=== PATIENT | male | born 1985 | race Caucasian/White ===

== ENCOUNTER 2019-11-17 08:40 | Emergency (ER) | payer SELFPAY ==
[2019-11-17] MEDS ORDERED: predniSONE 10 MG Tab ONE (09:00)
[2019-11-17] MEDS ORDERED: Albuterol 8 GM Inhaler INH ONE (09:00)
--- NOTE | 2019-11-17 12:38 | EDM.PDOC ---
ED HPI GENERAL MEDICAL PROBLEM - General Stated Complaint: SOB, COUGH Time Seen by Provider: 11/17/19 08:50 Source of Information: Reports: Patient History Limitations: Reports: No Limitations - History of Present Illness INITIAL COMMENTS - FREE TEXT/NARRATIVE: This patient presents for evaluation of a cough. He states he had a cough that was coarse in September along with some sinus congestion but was not seen by his PCP. He states the cough and chest congestion went away completely but the "sinus stuff" did not. He developed a cough again this week. He states it is dry and mostly non-productive. He has not had a fever, denies runny nose. Appetite is good and he denies vomiting or diarrhea. He states he has been told that he has "asthma and COPD" in the past and has used an albuterol MDI in the past but is not on any medications at this time. He denies any history of smoking, other concerns or complaints. He works at a local [employer]. Onset: Gradual Onset Date: 11/11/19 Duration: Getting Worse Location: Reports: Chest Improves with: Reports: None Associated Symptoms: Reports: Cough ED ROS GENERAL - Review of Systems Review Of Systems: See Below Constitutional: Denies: Fever, Decreased Appetite HEENT: Reports: Throat Pain. Denies: Ear Discharge, Ear Pain, Eye Discharge, Eye Pain, Rhinitis Respiratory: Reports: Cough. Denies: Shortness of Breath, Wheezing Cardiovascular: Denies: Chest Pain GI/Abdominal: Reports: No Symptoms Musculoskeletal: Reports: No Symptoms Skin: Reports: No Symptoms Neurological: Reports: No Symptoms ED EXAM, GENERAL - Physical Exam Exam: See Below Exam Limited By: No Limitations General Appearance: Alert, WD/WN, No Apparent Distress Eye Exam: Bilateral Eye: Normal Inspection, PERRL Ears: Normal External Exam, Normal Canal, Normal TMs Nose: Normal Inspection, Normal Mucosa, Clear Rhinorrhea Throat/Mouth: Normal Inspection, Normal Lips, Normal Teeth, Normal Oropharynx Head: Atraumatic, Normocephalic Neck: Normal Inspection, Supple, Non-Tender, Full Range of Motion Respiratory/Chest: No Respiratory Distress, Lungs Clear, Normal Breath Sounds, No Accessory Muscle Use, Chest Non-Tender, Other (occasional dry, non- productive cough) Extremities: Normal Inspection, Normal Range of Motion Skin Exam: Warm, Dry, Intact, Normal Color Course - Vital Signs Last Recorded V/S: Last Vital Signs Temp 37.2 C 11/17/19 08:55 Pulse 100 11/17/19 08:55 Resp 16 11/17/19 08:55 BP 133/94 H 11/17/19 08:55 Pulse Ox 97 11/17/19 08:55 - Re-Assessments/Exams Free Text/Narrative Re-Assessment/Exam: 11/17/19 13:05 This patient presents for evaluation of cough. This is consistent with an upper respiratory tract infection. There are no signs at this point of other serious bacterial infection such as OM, RPA, epiglottitis, DITCH RIDER, strep pharyngitis, pneumonia, sinusitis, meningitis, bacteremia. Given clear lungs, fever curve, no hypoxia and no respiratory distress I do not feel patient needs a CXR at this point as the probability of bacterial pneumonia is very unlikely. There are no concerning gastrointestinal symptoms at this point and no signs of dehydration. He was given an albuteral mdi to use every 4-6 hours as needed for cough as well as a prescription for prednisone to use for the next 4 days. Close followup with primary care physician is indicated. Return to ED for fever > 103, protracted vomiting, confusion. Departure - Departure Time of Disposition: 09:15 Disposition: Refer to Observation Condition: Good Clinical Impression: URI, acute - Discharge Information *PRESCRIPTION DRUG MONITORING PROGRAM REVIEWED*: Not Applicable Instructions: Asthma, Adult, [id number] Referrals: PCP,None [Primary Care Provider] - Care Plan Goals: Avoid exposures to smoke, ect any triggers that make symptoms worse. Take medication as prescribed. Call or return with any questions or concerns. Sepsis Event Note - Evaluation Sepsis Screening Result: No Definite Risk - Focused Exam Vital Signs: Vital Signs Temp Pulse Resp BP Pulse Ox 11/17/19 08:55 37.2 C 100 16 133/94 H 97 Date Exam was Performed: 11/17/19 Time Exam was Performed: 12:23
== END 2019-11-17 09:13 ==
LOC: LB.ED 08:40
DX: J06.9 Acute upper respiratory infection, unspecified (principal)
CPT/HCPCS: 99283; A9270

== ENCOUNTER 2020-11-11 12:19 | Emergency (ER) | payer SELFPAY ==
[2020-11-11] MEDS ORDERED: Lidocaine 1% with EPINEPHrine 1:100,000 20 ML MDV INJECT ONE (12:58)
[2020-11-11] MEDS ORDERED: Diphtheria,Pertussis(Acell),Tetanus Vaccine 0.5 ML SDV IM ONE (13:10)
--- NOTE | 2020-11-11 13:16 | EDM.PDOC ---
ED HPI GENERAL MEDICAL PROBLEM - General Chief Complaint: General Stated Complaint: LACERATION ON LEFT HAND Time Seen by Provider: 11/11/20 12:30 Source of Information: Reports: Patient History Limitations: Reports: No Limitations - History of Present Illness INITIAL COMMENTS - FREE TEXT/NARRATIVE: presented to the ER due to laceration wound of left hand with a clean pizza cutt er. bleeding was controlled with pressure. minimal pain. not UTD on tetanus - Related Data Allergies Allergy/AdvReac Type Severity Reaction Status Date / Time No Known Allergies Allergy Verified 11/11/20 12:59 Past Medical History Musculoskeletal History: Reports: Connective Tissue Disease, Osteoarthritis Other Musculoskeletal History: Opal-Danlos syndrome - Infectious Disease History Infectious Disease History: Reports: Chicken Pox Social & Family History - Family History Family Medical History: No Pertinent Family History - Tobacco Use Tobacco Use Status *Q: Never Tobacco User Second Hand Smoke Exposure: No - Caffeine Use Caffeine Use: Reports: None - Recreational Drug Use Recreational Drug Use: No ED ROS GENERAL - Review of Systems Review Of Systems: See Below Constitutional: Reports: No Symptoms HEENT: Reports: No Symptoms Respiratory: Reports: No Symptoms Cardiovascular: Reports: No Symptoms GI/Abdominal: Reports: No Symptoms : Reports: No Symptoms Musculoskeletal: Reports: No Symptoms Neurological: Reports: No Symptoms ED EXAM, GENERAL - Physical Exam Exam: See Below Exam Limited By: Altered Mental Status General Appearance: Alert, No Apparent Distress Eye Exam: Bilateral Eye: EOMI, PERRL Neck: Normal Inspection Respiratory/Chest: No Respiratory Distress Cardiovascular: Normal Peripheral Pulses Extremities: Normal Inspection Neurological: Alert, Oriented, No Motor/Sensory Deficits Course - Vital Signs Last Recorded V/S: Last Vital Signs Temp 36.7 C 11/11/20 12:28 Pulse 94 11/11/20 12:28 Resp 18 11/11/20 12:28 BP 148/97 H 11/11/20 12:28 Pulse Ox 99 11/11/20 12:28 - Orders/Labs/Meds Meds: Medications Discontinued Medications Generic Name Dose Route Start Last Admin Trade Name Freq PRN Reason Stop Dose Admin Diphtheria/Tetanus/Acell Pertussis 0.5 ml 11/11/20 13:10 11/11/20 12:57 Boostrix IM 11/11/20 13:11 0.5 ml .ONCE ONE Administration Lidocaine/Epinephrine 5 ml 11/11/20 12:58 11/11/20 12:36 Xylocaine 1% With Epinephrine 1:100,000 INJECT 11/11/20 12:59 5 ml ONETIME ONE Administration - Re-Assessments/Exams Free Text/Narrative Re-Assessment/Exam: wound was cleaned and washed with betadine no FB seen. bleeding was controlled with direct pressure. lidocaine 1% was used. Ethilon 4.0 was used to close the wound. 3 sutures in the left idex and 1 suture in the middle finger. bacitracin abx was applied. sterile dressing Departure - Departure Time of Disposition: 13:07 Disposition: Home, Self-Care 01 Condition: Good Clinical Impression: Laceration of little finger Qualifiers: Encounter type: initial encounter Damage to nail status: without damage Foreign body presence: without foreign body Laterality: left Qualified Code(s): S61.217A - Laceration without foreign body of left little finger without damage to nail, initial encounter - Discharge Information *PRESCRIPTION DRUG MONITORING PROGRAM REVIEWED*: Not Applicable *COPY OF PRESCRIPTION DRUG MONITORING REPORT IN PATIENT MARLENA: Not Applicable Instructions: Laceration Care, Adult, Sutured Wound Care Referrals: PCP,None [Primary Care Provider] - Forms: ED Department Discharge Additional Instructions: Discharge home. Keep wound clean and dry. Follow up in 7-10 days to have sutures removed in the clinic. Monitor for signs of infection and return to the ER if you have any questions or concerns. Sepsis Event Note (ED) - Evaluation Sepsis Screening Result: No Definite Risk - Focused Exam Vital Signs: Vital Signs Temp Pulse Resp BP Pulse Ox 11/11/20 12:28 36.7 C 94 18 148/97 H 99 - Problem List & Annotations (1) Laceration of little finger SNOMED Code(s): 209989975 Code(s): S61.218A - LACERATION W/O FB OF FINGER W/O DAMAGE TO NAIL, INIT Status: Acute Qualifiers: Encounter type: initial encounter Damage to nail status: without damage Foreign body presence: without foreign body Laterality: left Qualified Code(s): S61.217A - Laceration without foreign body of left little finger without damage to nail, initial encounter - Problem List Review Problem List Initiated/Reviewed/Updated: Yes - Assessment/Plan Plan: Discharge home. Keep wound clean and dry. Follow up in 7-10 days to have sutures removed in the clinic. Monitor for signs of infection and return to the ER if you have any questions or concerns.
== END 2020-11-11 13:05 | disposition home or self-care (01) ==
LOC: LB.ED 12:19
DX: S61.211A Laceration without foreign body of left index finger without damage to nail, initial encounter (principal); S61.213A Laceration without foreign body of left middle finger without damage to nail, initial encounter; Z23 Encounter for immunization; W26.0XXA Contact with knife, initial encounter
CPT/HCPCS: 12002; 90471; 90715; 99282; 99282-25

== ENCOUNTER 2021-02-07 07:15 | Emergency (ER) | payer BC ==
[2021-02-07] MEDS: Ondansetron 4 MG Tab.DIS PO ONE (07:43)
[2021-02-07] MEDS: Sodium Chloride 0.9% 1,000 ML IV ONE (07:46)
[2021-02-07] MEDS ORDERED: Sodium Chloride 0.9% 10 ML Syringe FLUSH PRN (07:51)
[2021-02-07] MEDS: Ondansetron 4 MG Tab.DIS ONE (08:06)
[2021-02-07] MEDS: Ketorolac 30 MG/ML SDV IVPUSH ONE (08:46)
[2021-02-07] MEDS: Ketorolac 30 MG/ML SDV ONE (08:51)
--- NOTE | 2021-02-07 08:56 | EDM.PDOC ---
ED HPI GENERAL MEDICAL PROBLEM - General Chief Complaint: General Stated Complaint: "DOESN'T FEEL RIGHT" Time Seen by Provider: 02/07/21 08:00 Source of Information: Reports: Patient History Limitations: Reports: No Limitations - History of Present Illness INITIAL COMMENTS - FREE TEXT/NARRATIVE: patient presented to the ER with a c/o fatigue and not feeling right. Symptoms started this morning. Went to work, but didn't feel well, so decided to come to the ER for a check up. Admits drinking alcohol ( more than usual ) around 8 mix drinks last night. No fever or chills. Mild nausea and heaviness in the head. Onset: Today Duration: Hour(s): (2) Left Arm Pain Score (Numeric/FACES): 3 - Related Data Allergies Allergy/AdvReac Type Severity Reaction Status Date / Time environmental Allergy Bronchospas Uncoded 02/07/21 08:22 allergies-mold, dust ms Home Meds: Home Meds Albuterol [Proventil HFA] 200 puff INH Q4H PRN 02/07/21 [History] Budesonide/Formoterol Fumarate [Budesonide-Formoterol 80-4.5] 2 puff IH BID 02/07/21 [History] Loratadine [Claritin] 10 mg PO DAILY 02/07/21 [History] Past Medical History Respiratory History: Reports: Asthma Musculoskeletal History: Reports: Connective Tissue Disease, Osteoarthritis Other Musculoskeletal History: Opal-Danlos syndrome Neurological History: Reports: Migraines - Infectious Disease History Infectious Disease History: Reports: Chicken Pox - Past Surgical History HEENT Surgical History: Reports: Naso-Sinus Surgery Social & Family History - Family History Family Medical History: No Pertinent Family History - Tobacco Use Tobacco Use Status *Q: Never Tobacco User Second Hand Smoke Exposure: No - Caffeine Use Caffeine Use: Reports: Soda - Alcohol Use Days Per Week of Alcohol Use: 7 Number of Drinks Per Day: 3 Total Drinks Per Week: 21 - Recreational Drug Use Recreational Drug Use: No ED ROS GENERAL - Review of Systems Review Of Systems: See Below Constitutional: Reports: Malaise, Fatigue HEENT: Reports: No Symptoms Respiratory: Reports: No Symptoms Cardiovascular: Reports: No Symptoms Endocrine: Reports: No Symptoms GI/Abdominal: Reports: No Symptoms Skin: Reports: No Symptoms Neurological: Reports: No Symptoms ED EXAM, GENERAL - Physical Exam Exam: See Below Exam Limited By: No Limitations General Appearance: Alert, WD/WN, No Apparent Distress Eye Exam: Bilateral Eye: EOMI Respiratory/Chest: No Respiratory Distress, Lungs Clear Cardiovascular: Normal Peripheral Pulses GI/Abdominal: Normal Bowel Sounds Extremities: Normal Inspection Neurological: Alert, Oriented, Normal Cognition, Normal Gait Course - Vital Signs Last Recorded V/S: Last Vital Signs Temp 36.4 C 02/07/21 07:25 Pulse 75 02/07/21 08:53 Resp 16 02/07/21 08:53 BP 126/87 02/07/21 08:53 Pulse Ox 96 02/07/21 08:53 - Orders/Labs/Meds Labs: Laboratory Tests 02/07/21 02/07/21 Range/Units 08:00 08:00 WBC 8.3 (4.0-11.0) K/uL RBC 5.40 (4.50-6.50) M/uL Hgb 15.2 (13.0-18.0) g/dL Hct 44.3 (40.0-54.0) % MCV 82 (76-96) fL MCH 28.1 (27.0-32.0) pg MCHC 34.3 (31.0-35.0) g/dL RDW 14.3 (11.0-16.0) % Plt Count 282 (150-400) K/uL MPV 10.0 (6.0-10.0) fL Neut % (Auto) 51.8 (45.0-70.0) % Lymph % (Auto) 25.5 (20.0-40.0) % [place] % (Auto) 6.6 (3.0-10.0) % Eos % (Auto) 14.9 H (1.0-5.0) % Baso % (Auto) 1.2 H (0.0-0.5) % Neut # (Auto) 4.30 (2.00-7.50) K/uL Lymph # (Auto) 2.12 (1.50-4.00) K/uL [place] # (Auto) 0.55 (0.20-0.80) K/uL Eos # (Auto) 1.24 H (0.04-0.40) K/uL Baso # (Auto) 0.10 (0.02-0.10) K/uL Sodium 141 (136-145) mmol/L Potassium 3.6 (3.5-5.1) mmol/L Chloride 104 (98-107) mmol/L Carbon Dioxide 25.5 (21.0-32.0) mmol/L Anion Gap 15.1 H (5.0-15.0) mmol/L BUN 16 (8-26) mg/dL Creatinine 1.17 (0.70-1.30) mg/dL Est Cr Clr Drug Dosing 96.72 mL/min Estimated GFR (MDRD) > 60 (>60) MLS/MIN BUN/Creatinine Ratio 13.7 (6-25) Glucose 101 H (74-100) mg/dL Calcium 8.5 (8.5-10.1) mg/dL Total Bilirubin 0.6 (0.0-1.0) mg/dL AST 26 (15-37) U/L ALT 58 (12-78) U/L Alkaline Phosphatase 83 (46-116) U/L Total Protein 7.0 (6.4-8.2) g/dL Albumin 3.9 (3.4-5.0) g/dL Globulin 3.1 (2.2-4.2) g/dL Albumin/Globulin Ratio 1.3 (0.8-2.0) Meds: Medications Discontinued Medications Generic Name Dose Route Start Last Admin Trade Name Freq PRN Reason Stop Dose Admin Sodium Chloride 1,000 mls @ 999 mls/hr 02/07/21 07:30 02/07/21 07:46 Normal Saline IV 02/07/21 08:30 999 mls/hr .BOLUS ONE Administration Ketorolac Tromethamine Confirm 02/07/21 08:55 02/07/21 08:51 Ketorolac 30 Mg/Ml Sdv Administered 02/07/21 08:56 Not Given Dose 30 mg .ROUTE .STK-MED ONE Ketorolac Tromethamine 30 mg 02/07/21 08:45 02/07/21 08:46 Ketorolac 30 Mg/Ml Sdv IVPUSH 02/07/21 08:46 30 mg ONETIME ONE Administration Ondansetron HCl Confirm 02/07/21 07:54 02/07/21 08:06 Ondansetron 4 Mg Tab.Dis Administered 02/07/21 07:55 Not Given Dose 4 mg .ROUTE .STK-MED ONE Ondansetron HCl 4 mg 02/07/21 07:30 02/07/21 07:43 Ondansetron 4 Mg Tab.Dis PO 02/07/21 07:31 4 mg ONETIME ONE Administration Sodium Chloride 10 ml 02/07/21 07:51 Sodium Chloride 0.9% 10 Ml Syringe FLUSH ASDIRECTED PRN Keep Vein Open - Re-Assessments/Exams Free Text/Narrative Re-Assessment/Exam: IVF was given for hydration Zofran and IM toradol reports improvement in symptoms Departure - Departure Time of Disposition: 21:52 Disposition: Home, Self-Care 01 Condition: Good Clinical Impression: Headache Qualifiers: Headache type: unspecified Headache chronicity pattern: unspecified pattern Intractability: not intractable Qualified Code(s): R51.9 - Headache, unspecified Hangover effect Qualifiers: Complication of substance-induced condition: uncomplicated Qualified Code(s): F10.120 - Alcohol abuse with intoxication, uncomplicated - Discharge Information *PRESCRIPTION DRUG MONITORING PROGRAM REVIEWED*: Not Applicable *COPY OF PRESCRIPTION DRUG MONITORING REPORT IN PATIENT MARLENA: Not Applicable Referrals: PCP,None [Primary Care Provider] - Forms: ED Department Discharge Additional Instructions: - increase fluids intake - make an appointment with the PCP, to discuss a referral to Physial therapy. - recommend to avoid alcohol intake today - return to the ER if any concerns Sepsis Event Note (ED) - Evaluation Sepsis Screening Result: No Definite Risk - Problem List & Annotations (1) Headache SNOMED Code(s): 71646542 Code(s): R51.9 - HEADACHE, UNSPECIFIED Status: Acute Qualifiers: Headache type: unspecified Headache chronicity pattern: unspecified pattern Intractability: not intractable Qualified Code(s): R51.9 - Headache, unspecified - Problem List Review Problem List Initiated/Reviewed/Updated: Yes - Assessment/Plan Plan: - increase fluids intake - make an appointment with the PCP, to discuss a referral to Physial therapy. - recommend to avoid alcohol intake today - return to the ER if any concerns
== END 2021-02-07 09:15 | disposition home or self-care (01) ==
LOC: LB.ED 07:15
DX: R51.9 Headache, unspecified (principal); F10.120 Alcohol abuse with intoxication, uncomplicated; J45.909 Unspecified asthma, uncomplicated; Z91.048 Other nonmedicinal substance allergy status
CPT/HCPCS: 36415; 80053; 85025; 96374; 99284; A9270; J1885; J7030; 99283

== ENCOUNTER 2021-04-12 13:24 | Emergency (ER) | payer BC ==
[2021-04-12] MEDS ORDERED: Ondansetron 4 MG Tab.DIS PO ONE (13:48)
--- NOTE | 2021-04-12 13:48 | EDM.PDOC ---
ED HPI GENERAL MEDICAL PROBLEM - General Chief Complaint: General Stated Complaint: general Time Seen by Provider: 04/12/21 13:48 Source of Information: Reports: Patient History Limitations: Reports: No Limitations - History of Present Illness INITIAL COMMENTS - FREE TEXT/NARRATIVE: patient presented to the ER with a c/o generalized fatigue, and mild dizziness. Reports symptoms have been going on for several weeks. Also stomachache and headache for 10+ years. no fever or chills. mild nausea, but no emesis. Admits drinking ETOH whiskey around 5-6 drinks yesterday. Feeling foggy this morning. Beside that, he also reports chronic neck and back pain. - Related Data Allergies Allergy/AdvReac Type Severity Reaction Status Date / Time environmental Allergy Bronchospas Uncoded 02/07/21 08:22 allergies-mold, dust ms Home Meds: Home Meds Albuterol [Proventil HFA] 200 puff INH Q4H PRN 02/07/21 [History] Budesonide/Formoterol Fumarate [Budesonide-Formoterol 80-4.5] 2 puff IH BID 02/07/21 [History] Loratadine [Claritin] 10 mg PO DAILY 02/07/21 [History] Past Medical History Respiratory History: Reports: Asthma Musculoskeletal History: Reports: Connective Tissue Disease, Osteoarthritis Other Musculoskeletal History: Opal-Danlos syndrome Neurological History: Reports: Migraines - Infectious Disease History Infectious Disease History: Reports: Chicken Pox - Past Surgical History HEENT Surgical History: Reports: Naso-Sinus Surgery Social & Family History - Family History Family Medical History: No Pertinent Family History - Tobacco Use Tobacco Use Status *Q: Never Tobacco User Second Hand Smoke Exposure: No - Caffeine Use Caffeine Use: Reports: Soda - Recreational Drug Use Recreational Drug Use: No ED ROS GENERAL - Review of Systems Review Of Systems: See Below Constitutional: Reports: Malaise, Fatigue HEENT: Reports: No Symptoms Respiratory: Reports: No Symptoms Cardiovascular: Reports: No Symptoms GI/Abdominal: Reports: Nausea : Reports: No Symptoms Musculoskeletal: Reports: Neck Pain, Back Pain Skin: Reports: No Symptoms Neurological: Reports: Headache Psychiatric: Reports: No Symptoms ED EXAM, GENERAL - Physical Exam Exam: See Below Exam Limited By: No Limitations General Appearance: Alert, WD/WN, No Apparent Distress Eye Exam: Bilateral Eye: EOMI Head: Atraumatic, Normocephalic Respiratory/Chest: No Respiratory Distress, Lungs Clear Cardiovascular: Normal Peripheral Pulses, Regular Rate, Rhythm GI/Abdominal: Normal Bowel Sounds, Soft, Other (obese) Extremities: Normal Inspection Neurological: Alert, Oriented, No Motor/Sensory Deficits Psychiatric: Normal Affect, Normal Mood Skin Exam: Warm, Intact Course - Vital Signs Last Recorded V/S: Last Vital Signs Temp 36.7 C 04/12/21 13:32 Pulse 73 04/12/21 13:32 Resp 16 04/12/21 13:32 BP 123/76 04/12/21 13:32 Pulse Ox 98 04/12/21 13:32 - Orders/Labs/Meds Meds: Medications Discontinued Medications Generic Name Dose Route Start Last Admin Trade Name Jaidenq PRN Reason Stop Dose Admin Al Hydroxide/Mg Hydroxide 30 ml 04/12/21 15:53 Gi Cocktail Oral Solution 30 Ml PO 04/12/21 15:54 ONETIME ONE Cyclobenzaprine HCl Confirm 04/12/21 15:31 Cyclobenzaprine 10 Mg Tab Administered 04/12/21 15:32 Dose 10 mg .ROUTE .STK-MED ONE Sodium Chloride 1,000 mls @ 999 mls/hr 04/12/21 13:49 04/12/21 14:40 Normal Saline IV 04/12/21 14:49 999 mls/hr .BOLUS ONE Administration Ketorolac Tromethamine 30 mg 04/12/21 14:58 04/12/21 15:32 Ketorolac 30 Mg/Ml Sdv IVPUSH 04/12/21 14:59 30 mg ONETIME ONE Administration Ketorolac Tromethamine Confirm 04/12/21 15:35 Ketorolac 30 Mg/Ml Sdv Administered 04/12/21 15:36 Dose 30 mg .ROUTE .STK-MED ONE Ondansetron HCl 4 mg 04/12/21 13:48 Ondansetron 4 Mg Tab.Dis PO 04/12/21 13:49 ONETIME ONE Ondansetron HCl 4 mg 04/12/21 14:41 04/12/21 14:45 Ondansetron 4 Mg/2 Ml Sdv IVPUSH 04/12/21 14:42 4 mg ONETIME ONE Administration Orphenadrine Citrate 60 mg 04/12/21 14:58 04/12/21 15:34 Orphenadrine 60 Mg/2 Ml Inj IV 04/12/21 14:59 60 mg ONETIME ONE Administration Orphenadrine Citrate Confirm 04/12/21 15:30 Orphenadrine 60 Mg/2 Ml Inj Administered 04/12/21 15:31 Dose 60 mg .ROUTE .STK-MED ONE Prochlorperazine Edisylate 10 mg 04/12/21 14:58 04/12/21 15:34 Prochlorperazine 10 Mg/2 Ml Sdv IVPUSH 04/12/21 14:59 10 mg ONETIME ONE Administration Prochlorperazine Edisylate Confirm 04/12/21 15:25 04/12/21 15:35 Prochlorperazine 10 Mg/2 Ml Sdv Administered 04/12/21 15:26 Not Given Dose 10 mg .ROUTE .STK-MED ONE - Re-Assessments/Exams Free Text/Narrative Re-Assessment/Exam: vitals WNL IVF was started Zofran and Compazine for nausea Toradol and Norflex for headache reports feeling much better less headache and better nausea control patient admits drinking ETOH and taking naproxen almost everyday for his headache. recommended to avoid doing that - it might cause severe gastritis Departure - Departure Time of Disposition: 15:57 Disposition: Home, Self-Care 01 Condition: Good Clinical Impression: Chronic fatigue and malaise Headache Qualifiers: Headache type: tension-type Headache chronicity pattern: unspecified pattern Intractability: not intractable Qualified Code(s): G44.209 - Tension-type headache, unspecified, not intractable Hangover effect Qualifiers: Complication of substance-induced condition: uncomplicated Qualified Code(s): F10.120 - Alcohol abuse with intoxication, uncomplicated - Discharge Information *PRESCRIPTION DRUG MONITORING PROGRAM REVIEWED*: Not Applicable *COPY OF PRESCRIPTION DRUG MONITORING REPORT IN PATIENT MARLENA: Not Applicable Instructions: Migraine Headache, [id number], Chronic Fatigue Syndrome, Sinus Headache, [id number] Referrals: PCP,None [Primary Care Provider] - Forms: ED Department Discharge Additional Instructions: - recommend to increase fluids intake - take antiacids medications to help with your gastritis - call the clinic to establish a PCP for further investigation and referral for your headache and sinusitis - recommend to start working on weight loss to help with your chronic back pain - take allergy medication for your sinuses - return to the ER if symptoms got worse or any concerns Sepsis Event Note (ED) - Evaluation Sepsis Screening Result: No Definite Risk - Focused Exam Vital Signs: Vital Signs Temp Pulse Resp BP Pulse Ox 04/12/21 13:32 36.7 C 73 16 123/76 98 - Problem List & Annotations (1) Headache SNOMED Code(s): 83535799 Code(s): R51.9 - HEADACHE, UNSPECIFIED Status: Acute Priority: Low [facility] Visit: Yes Qualifiers: Headache type: tension-type Headache chronicity pattern: unspecified pattern Intractability: not intractable Qualified Code(s): G44.209 - Tension-type headache, unspecified, not intractable (2) Hangover effect SNOMED Code(s): 78692585 Code(s): F10.129 - ALCOHOL ABUSE WITH INTOXICATION, UNSPECIFIED Status: Acute Priority: Low Current Visit: Yes Qualifiers: Complication of substance-induced condition: uncomplicated Qualified Code(s): F10.120 - Alcohol abuse with intoxication, uncomplicated (3) Chronic fatigue and malaise SNOMED Code(s): 885105537 Code(s): R53.82 - CHRONIC FATIGUE, UNSPECIFIED; R53.81 - OTHER MALAISE Status: Acute Current Visit: Yes (4) Morbid obesity with BMI of 40.0-44.9, adult SNOMED Code(s): 266529989, 44153474130962 Code(s): E66.01 - MORBID (SEVERE) OBESITY DUE TO EXCESS CALORIES; Z68.41 - BODY MASS INDEX [BMI]40.0-44.9, ADULT Status: Chronic Priority: Medium Current Visit: Yes - Problem List Review Problem List Initiated/Reviewed/Updated: Yes - Assessment/Plan Plan: - recommend to increase fluids intake - call the clinic to establish a PCP for further investigation and referral for your headache and sinusitis - recommend to start working on weight loss to help with your chronic back pain - take allergy medication for your sinuses - return to the ER if symptoms got worse or any concerns
[2021-04-12] MEDS: Sodium Chloride 0.9% 1,000 ML IV ONE (14:40)
[2021-04-12] MEDS: Ondansetron 4 MG/2 ML SDV IVPUSH ONE (14:45)
[2021-04-12] MEDS ORDERED: Cyclobenzaprine 10 MG Tab ONE (15:31)
[2021-04-12] MEDS: Ketorolac 30 MG/ML SDV IVPUSH ONE (15:32)
[2021-04-12] MEDS: Orphenadrine 60 MG/2 ML Inj IV ONE (15:34)
[2021-04-12] MEDS: Prochlorperazine 10 MG/2 ML SDV IVPUSH ONE (15:34)
[2021-04-12] MEDS: Prochlorperazine 10 MG/2 ML SDV ONE (15:35)
[2021-04-12] MEDS: Orphenadrine 60 MG/2 ML Inj ONE (16:11)
[2021-04-12] MEDS: Aluminum Hydroxide/Magnesium Hydroxide/Simethicone Susp 30 ML Cup ONE (16:11)
[2021-04-12] MEDS: GI Cocktail Oral Solution 30 ML PO ONE (16:12)
[2021-04-12] MEDS: Lidocaine 2% Viscous Solution 15 ML Cup ONE (16:12)
[2021-04-12] MEDS: Ketorolac 30 MG/ML SDV ONE (16:13)
== END 2021-04-12 16:15 | disposition home or self-care (01) ==
LOC: LB.ED 13:24
DX: G44.209 Tension-type headache, unspecified, not intractable (principal); R53.83 Other fatigue; R53.81 Other malaise; F10.120 Alcohol abuse with intoxication, uncomplicated; J45.909 Unspecified asthma, uncomplicated; E66.9 Obesity, unspecified; Z68.41 Body mass index [BMI] 40.0-44.9, adult; Z79.899 Other long term (current) drug therapy; Z91.048 Other nonmedicinal substance allergy status
CPT/HCPCS: 96374; 96375; 99283-25; A9270-GY; J0780; J1885; J2360; J2405; J7030